=== PATIENT | female | born 1955 | race Caucasian/White ===

== ENCOUNTER → 2016-10-14 | Outpatient (CLI) | payer BC, OTHER ==
[~2016-10-14] MED LIST: ACYC1CAP8 PO; ACYC5OIN3 EXT; BACL10TA PO; CALC600T13 PO; CLON0.5T3 PO; ESTR0.1D TOP; FLUT0.15; FLUV100T12 PO; LAMO200T38 PO; NMN5 PO; PROM25TA9 PO; RISP0.258 PO; TOPI25TA99 PO; ZNF4 PO
--- NOTE | 2016-10-15 06:25 | PAP/PSG TECHNICIAN REPORT ---
[facility] [employer] Polysomnogram Report Study name: None Report date: 10/15/2016 Study date: 10/14/2016 Referring Physician: Rui PETER M.D. Name: LONNIE BOWENS Interpreting Physician: Iman Peter M.D. Date of : 1955 [employer]: Rajendra Tsai RPSGT. Sex: Female Age: 61 StudyType: PSG Weight: 164 lbs 14.25 INCHES Height: 61 years, Height 5' 6" Neck Circum: BMI: 26.47 Medications: PHENERGAN 25 MG, NAPROXEN SODIUM 550 MG, BACLOFEN 20 MG, NAMENDA XR 7 MG, TOPIRAMATE 25 MG, SUMATRIPTAN SUCCINATE 100 MG, ZOVIRAX 200 MG, FLONASE, LEVOXYL 25 MCG, IMITREX 20 MG, RISPERDAL 0.25 MG, FLUVOXAMINE MALEATE 100 MG, LAMICTAL 200 MG, CALCIUM 1500 MG, VIVELLE 0.1 MG Patient History PATIENT HAS HISTORY OF SNORING, FATIGUE, NOCTURIA, EXCESSIVE DAYTIME SLEEPINESS AND NON-REFRESHING SLEEP. SHE IS HERE TODAY FOR AN EVALUATION FOR ERAN. ESS = 14 RM 7 Parameters Monitored NPSG: E1-M2, E2-M1, Fp1-M2, Fp2-M1, F3-M2, F4-M2, F4-M1, C3-M2, C4-M2, C4-M1, O1-M2, O2-M2, O2-M1, T3-M2, T4-M1, P3-M2, P4-M1, CHIN1, CHIN2, HR, EKG, Legs, PFLOW, SNOR, FLOW, CFLOW, Tidal Volume, THOR, ABDO, SpO2, PLTH, CPRESS, ETCO2 Wave, ETCO2, pH Sleep Architecture Sleep Stages Time at Lights Off 10:32:40 PM STAGES Time (min.) TST (%) Time at Lights On 5:56:10 AM Wake 78.5 -- Total Recording Time (TRT) 444.00 min. N1 22.0 6 Total Sleep Period (TSP) 426.0 min. N2 259.0 71 Total Sleep Time (TST) 365.0min. N3 40.0 11 Awake Time 78.5 min. REM 44.0 12 Wake after Sleep Onset 61.0 min. Sleep Efficiency (SE) 82 % Sleep Onset Latency (TRI) 17.5 min. Number of Stage 1 Shifts None Awakenings 18 Stage Changes 73 Number of REM periods 5 REM 44.0 12 REM Latency 142.0 min. NREM 321.0 88 Body Position Analysis Supine Right Left Side Prone Vertical Total Sleep Time (min.) 181.1 121.9 113.0 234.92 0.0 0.0 Total Sleep Time (%) 36% 33% 31% 64 0% N/A% Total Sleep Time REM (min.) 0.0 30.5 13.5 None 0.0 0.0 Total Sleep Time NREM (min.) 130.1 91.4 99.5 None 0.0 0.0 Intermittent Wake (min.) 51.0 10.3 17.2 None 0.0 0.0 Total Sleep Period (%) 38% None None None None None Arousals Myoclonus (PLM) * Events Count Index Events Count Index Spontaneous 26 4 Events Awake (PLMW) 28 21.4 Respiratory 8 1.3 Events Asleep w/ Arousal (PLMA) 11 1.8 PLM 11 2 Events Asleep w/o Arousal (PLMS) 95 15.6 Snoring 9 1 Total Asleep 106 17.4 Total 54 9 Total 134 18 Respiratory Analysis * CA OA MA CH H RERA Total Count 0 0 0 0 59 0 59 Index 0.0 0.0 0.0 0 9.7 0 9.7 Mean Duration 0.0 0.0 0.0 0.00 20.1 0.0 20.1 Longest Duration 0.0 0.0 0.0 0.00 0.0 0.0 40.0 Respiratory Event Summary Total Supine ~Supine Right Left Prone REM NREM Apneas Count 0 0 0 0 0 N/A 0 0 Index 0.0 0 0 0.0 0.0 N/A 0 0 Hypopneas (4% Desat) Count 59 32 27 11 16 N/A 13 46 Index 9.7 14.8 7 5.4 8.5 N/A 17.7 8.6 Apneas & All Hypopneas Count 59 32 27 11 16 N/A 13 46 Index 9.7 15 7 5 8 N/A 17.7 8.6 Respiratory Events ([employer]+All Hyp+RERA) Count 59 32 27 11 16 N/A 13 46 Index 9.7 15 7 5.4 8.5 N/A 17.7 8.6 Respiratory Related Arousal Count 8 32 2 1 1 N/A 0 8 Index 1.3 3 1 0 1 N/A 0 1 Snoring Analysis Supine Right Left Prone REM NREM Total Snore duration 37.4 min Snores count 671 897 337 N/A 257 1,648 1,905 Snore mean duration 1.2 Sec Snores index 309 441 179 N/A 350.5 308.0 313.2 TST with snoring (%) 10.2% Desaturation Event Summary: Minimum %SpO2 Event Count Mean/Min/Max Duration(sec.) Desaturation Index % Time In Bed > 90 56 27.7 / 8.0 / 59.0 14.6 53.3 86 - 90 38 24.2 / 11.3 / 44.0 11.5 46.0 81 - 85 1 11.3 / 11.3 / 11.3 17.6 0.8 76 - 80 0 N/A 0.0 0.0 71 - 75 0 N/A 0.0 0.0 66 - 70 0 N/A 0.0 0.0 61 - 65 0 N/A 0.0 0.0 56 - 60 0 N/A 0.0 0.0 51 - 55 0 N/A 0.0 0.0 < 50 0 N/A 0.0 0.0 Total REM NREM Awake <50% 0.0 min. 0.0 min. 0.0 min. 0.0 min. 51 - 60% 0.0 min. 0.0 min. 0.0 min. 0.0 min. 61 - 70% 0.0 min. 0.0 min. 0.0 min. 0.0 min. 71 - 80% 0.0 min. 0.0 min. 0.0 min. 0.0 min. 81 - 90% 201.9 min. 26.5 min. 163.9 min. 11.5 min. 91 - 100% 230.0 min. 17.5 min. 157.1 min. 55.4 min. Average 91 90 90 92 Minimum SpO2 82 82 83 83 Desaturation Event Index 9.1 17.7 8.8 5.4 # Desat. Events below 89% 60 12 44 4 Time(%) with Saturation below 89% 6.8 2.1 4.4 0.3 Time(min.) with Saturation below 89% 29.5 9.1 18.9 1.4 Time (mins) REM (mins) NREM (mins) % of TST SpO2 Below 90% 60 13 N47 22.4 SpO2 Below 88% 26 0 0 3 Heart Rate Analysis Min (bpm) Max (bpm) Average (bpm) Awake 61 95 70 NREM 58 78 66 REM 64 83 70 Overall 58 83 66 Supplemental O2 Values Minimum O2 level: None Value Start Time End Time [employer] Comments Mrs. Bowens slept in the right, left and supine positions. No cardiac arrhythmia noted. Leg movements noted. No bruxism noted. Snoring was noted and scored as a 4 on a scale of 1 through 5. (0=no snoring, 5=snoring loud enough to be heard through a closed door or down the [address] way) Mrs. Bowens awoke to use the restroom 2 times during the night. Mrs. Bowens stated I slept as well as I do when I am in my own bed. The final report will be interpreted and signed by a sleep physician. The completed physician report will then be placed in the patient medical record. Therapy (cm H2O) 0 TIB (min.) 443.5 TST (min.) 365.0 Sleep Onset (min.) 17.5 REM Onset From Sleep (min.) 142.0 Sleep Efficiency % 82 Wakefulness (%) 18 Wakefulness (min.) 78.5 NREM 1 (%) 6 NREM 1 (min.) 22.0 NREM 2 (%) 71 NREM 2 (min.) 259.0 NREM 3 (%) 11 NREM 3 (min.) 40.0 REM (%) 12 REM (min.) 44.0 # Arousals 54 Arousal Index 9 # Snore 1,905 Snore Index 313.2 AHI 9.7 AHI Supine 15 AHI Non-Supine 7 NREM AHI 8.6 REM AHI 17.7 RDI 9.7 # Obstructive Apnea 0 # Central Apnea 0 # Mixed Apnea 0 # Hypopneas 59 RERAs 0 Total Respiratory Events 61 Time Below SpO2 89% (min.) 28.0 Mean NREM SpO2 (%) 90 Mean REM SpO2 (%) 90 Mean Sleep SpO2 (%) 90 Min NREM SpO2 (%) 83 Min REM SpO2 (%) 82 Position Supine (min.) 181.1 Position Non-supine (min.) 234.9 LM Index Sleep 17.4 LM Index NREM 16.6 LM Index REM 23.2 Mean Heart Rate (bpm) 66 Min Heart Rate (bpm) 58
--- NOTE | 2016-10-22 10:30 | POLYSOMNOGRAPH REPORT ---
REFERRING PERSON: Dr. Iman Peter. [employer]PUT[employer] ENGINEER: Rajendra Tsai. Ms. Bowens is a 61-year-old female complaining of snoring, fatigue, nocturia and excessive daytime sleepiness. She is sent to the sleep lab to rule out sleep disordered breathing. Her [place] Sleepiness Scale score on the evening of this study is 14. BMI is 26.47. Following the technical and digital specifications of the [place] [employer] (AASM) a standard diagnostic polysomnogram was performed monitoring EEG, EOG, EMG (chin and leg deviations), oxygen saturation, body position, digital video, respiratory effort and airflow. The sleep Stage and event scoring was based on the AASM Manual for the Scoring of Sleep and Associated Events 2007 edition. Apneas are defined as a drop in the peak thermal sensor excursion by >90% of baseline for at least 10 seconds. Hypopneas were scored using the 4% oxygen desaturation rule (4A-Medicare) and a decrease in the nasal pressure excursions by >30% of baseline for at least 10 seconds. Respiratory effort-related arousal (RERA's) is defined as a sequence of breaths lasting at least 10 seconds characterized by increasing respiratory effort or flattening of the nasal pressure waveform leading to an arousal from sleep when the sequence of breaths does not meet criteria for an apnea or hypopnea. Apnea Hypopnea index (AHI) is defined as the number of apneas and hypopneas occurring in an hour of sleep. Respiratory disturbance index (RDI) is defined as the number of apneas, hypopneas, and RERA's occurring in an hour of sleep. Ms. Bowens's total sleep period time was 426 minutes. Total sleep time was 365 minutes. Sleep efficiency was 82%. Latency to sleep onset was 17.5 minutes. Wake after sleep onset was 61 minutes. Total non-REM sleep time was 321 minutes. She spent 6% of that time in N1 sleep, 71% in N2 sleep and 11% in N3 sleep. REM latency was 142 minutes. Total REM sleep time was 44 minutes or 12% of total sleep time. There were 54 cortical arousals from sleep. Twenty-six of these arousals were spontaneous, 8 were due to respiratory events, 11 due to periodic limb movements of sleep and 9 were due to snoring. There were 106 periodic limb movements noted on this test. Limb movement index was 17.4. Limb movement with arousal index was 1.8. There were no central obstructive or mixed apneas on this test. However, there were 59 hypopnea. Apnea-hypopnea index was elevated at 9.7. The supine AHI was 15, REM AHI was 17.7. 1,905 snoring events were recorded. Total sleep time with snoring was 10.2%. Mean saturation was 91%, desaturations were noted to 82%. Saturations were less than 89% for 29.5 minutes of recorded time. There was no cardiac ectopy noted on this study. Ms. Bowens's heart rate ranged from a low of 58 beats per minute to a high of 83 beats per minute during sleep. IMPRESSION AND PLAN: A 61-year-old female with evidence of mild sleep apnea, more moderate in supine and REM sleep with significant nocturnal hypoxemia. 1. This patient would likely benefit from positive airway pressure therapy. She should return to sleep lab for a full night titration and then based on those results be started on equipment at home. A download from her machine can be reviewed in 1 month both to check compliance as well as AHI and further pressure adjustments can occur at that time. 2. Alternatively, this patient could be started on auto titrating CPAP with pressures of 5-15 cm. A download from her machine can be reviewed in 1 month and she could be set to optimal pressure at that time. An NPO on on optimal pressure can ensure her hypoxemia resolves with CPAP alone. 3. Should this patient be unwilling or unable to tolerate CPAP therapy, she should be referred to ear, nose and throat or oral surgery/dental medicine to discuss alternative treatments for sleep disorder breathing.
== END | disposition home or self-care (01) ==
LOC: C.NEUR 21:00
PROVIDERS: ATTEND Family Medicine
DX: G47.10 Hypersomnia, unspecified (principal); R06.83 Snoring; R09.02 Hypoxemia; G47.30 Sleep apnea, unspecified

== ENCOUNTER 2017-05-13 15:53 | Emergency (ER) | payer OTHER ==
[~2017-05-13] VITALS: Ht 167.6 cm; Wt 84.7 kg
[~2017-05-13 15:53] MED LIST changes: +ACYC-57 PO; -ACYC1CAP8 PO; +LAMO200T35 PO; -LAMO200T38 PO
[2017-05-13 15:57] VITALS: TEMP 36.7; Ht 167.6 cm; Wt 84.7 kg
[2017-05-13 16:42] VITALS: O2SAT 96
--- NOTE | 2017-05-13 17:09 | DIAGNOSTIC IMAGING REPORT ---
SINGLE VIEW CHEST CLINICAL HISTORY: Generalized weakness. Change in mental status. FINDINGS: An AP, portable, upright chest radiograph is compared to study dated 09/07/2015. The examination is degraded by portable technique and patient rotation. The heart appears enlarged. The pulmonary vasculature is noncongested. Linear opacities at both lung bases are typical for in appearance for atelectasis. No large pleural effusion or pneumothorax is seen. The skeletal structures are osteopenic. The bony thorax is grossly intact. IMPRESSION: 1. Cardiomegaly without radiographic evidence of congestive failure. 2. Linear opacities at the lung bases are typical appearance for atelectasis. Clinical correlation will be required. Electronically signed by: Kody Davis M.D. 05/13/2017 5:08 PM Dictated Date/Time: 05/13/2017 5:07 PM
[2017-05-13] MEDS ORDERED: ACYC5CRE4 TOP (17:18)
[2017-05-13] MEDS ORDERED: ZVRO TOP (17:18)
[2017-05-13] MEDS ORDERED: BACL20TA PO (17:24)
[2017-05-13] MEDS ORDERED: CALC600T36 PO (17:26)
[2017-05-13 17:30] LABS: BASO % 0.4 %; BASO ABS # 0.03 K/uL (0-0.2); EOS % 0.9 %; EOS ABS # 0.06 K/uL (0-0.5); HEMATOCRIT 42.2 % (37-47); IG# 0.04 K/uL (0.00-0.02); LYMPH % 13.5 %; LYMPH ABS # 0.92 K/uL (1.2-3.4); MEAN CELL VOLUME 91.1 fL (80-100); MEAN CORPUSCULAR HEMOGLOBIN 30.2 pg (25-34); MEAN CORPUSCULAR HGB CONC 33.2 g/dl (32-36); MEAN PLATELET VOLUME 9.4 fL (7.4-10.4); MONO % 6.9 %; MONO ABS # 0.47 K/uL (0.11-0.59); NEUT % 77.7 %; PLATELET COUNT 224 K/uL (130-400); RED CELL DISTRIBUTION WIDTH CV 13.4 % (11.5-14.5); RED CELL DISTRIBUTION WIDTH SD 44.3 fL (36.4-46.3); WHITE BLOOD COUNT 6.82 K/uL (4.8-10.8)
[2017-05-13 17:51] LABS: PTT PATIENT 26.8 SECONDS (21.0-31.0)
--- NOTE | 2017-05-13 17:52 | DIAGNOSTIC IMAGING REPORT ---
HEAD WITHOUT CONTRAST (CT) CLINICAL HISTORY: 61 years-old Female with EVALUATE ALTERED MENTAL STATUS/WEAKNESS. Acute weakness with altered mental status TECHNIQUE: Multiple axial CT images of the head were obtained without contrast. A dose lowering technique was utilized adhering to the principles of ALARA. CT DOSE: 537.48 mGy.cm COMPARISON: None. FINDINGS: No acute intracranial hemorrhage, midline shift, intracranial mass, hydrocephalus, territorial ischemia or abnormal extra-axial collection. Thick calcifications of the anterior falx cerebri noted. Minimal bifrontal cerebral atrophy. The calvarium is intact. The mastoid air cells, and middle ear cavities are clear. Large area of partially imaged polypoid mucosal thickening of the left maxillary sinus measures up to 2.7 cm. Mild rightward bowing and spurring of the nasal septum with large left omega bullosa. Soft tissues and orbits are unremarkable. IMPRESSION: No acute intracranial abnormality. The above report was generated using voice recognition software. It may contain grammatical, syntax or spelling errors. Electronically signed by: Oliver Su M.D. 05/13/2017 5:50 PM Dictated Date/Time: 05/13/2017 5:47 PM
[2017-05-13 17:55] LABS: ALT/SGPT 29 U/L (12-78); BLOOD UREA NITROGEN 17 mg/dl (7-18); CARBON DIOXIDE 28 mmol/L (21-32); CREATININE 0.79 mg/dl (0.60-1.20); GLUCOSE 96 mg/dl (70-99); LIPASE 206 U/L (73-393); POTASSIUM 3.5 mmol/L (3.5-5.1); SODIUM 140 mmol/L (136-145)
[2017-05-13] MEDS ORDERED: NAPR-1168 PO (17:55)
[2017-05-13] MEDS ORDERED: MINO5SOL6 TOP (17:55)
[2017-05-13] MEDS ORDERED: [UNRECOGNIZED DRUG - CODE] INJ (17:55)
[2017-05-13] MEDS ORDERED: SUMA20SP8 INH (17:55)
[2017-05-13] MEDS ORDERED: BTLAI INJ (17:55)
[2017-05-13] MEDS ORDERED: BUPIVACAINE (17:55)
[2017-05-13] MEDS ORDERED: LEVO25TA5 PO (17:55)
[2017-05-13] MEDS ORDERED: SUMA100T16 PO (17:55)
[2017-05-13 18:04] LABS: ALKALINE PHOSPHATASE 73 U/L (45-117); AST/SGOT 9 U/L (15-37); CKMB 1.6 ng/ml (0.5-3.6); TOTAL PROTEIN 7.4 gm/dl (6.4-8.2)
--- NOTE | 2017-05-13 18:15 | EMERGENCY ROOM VISIT NOTE ---
History Report prepared by Gregor: Janneth Rodney Under the Supervision of: Ravinder TuckerO. First contact with patient: 16:04 Chief Complaint: NEURO SYMPTOMS Stated Complaint: COULDN'T SWALLOW FOOD, VOMITING, THINKS HAD STROKE History of Present Illness The patient is a 61 year old female who presents to the Emergency Room with complaints of episodic global stroke-like symptoms at 1300 today. She states that she was eating hibachi scallops, rice, and vegetables when she suddenly felt like she could not swallow. She notes the food become stuck in the lower part of her throat. She notes she tried to drink water, though she could not swallow the water. She states that she felt like she could not breathe well. She notes that she vomited everything up. She notes the sensation came back, so she stopped eating. She reports feeling exhausted. She could not drive home afterwards. She states that she felt strange while walking. She reports her informed her that she was slurring her words at about 1500. She is concerned that she may have had a stroke. She has not tried to eat or drink anything since. She is currently able to swallow her saliva. She sucked on a breath mint on the way to the ED. She states that she did not sleep well last night and she feels more tired than normal. Source of History: patient Onset: 1300 today Position: other (global) Quality: other (stroke-like symptoms) Timing: other (episodic ) Associated Symptoms: + SOB, + vomiting Note: She notes difficulty swallowing, slurred speech, and exhaustion. Review of Systems See HPI for pertinent positives & negatives. A total of 10 systems reviewed and were otherwise negative. Past Medical & Surgical Medical Problems: (1) Anxiety State Nos (2) Chest pain (3) Cyst of left breast (4) Depression (5) Migraine (6) Overactive bladder (7) Precordial chest pain (8) Vertigo Surgical Problems: (1) History of hysterectomy Family History FH: heart disease Social History Smoking Status: Never Smoker Smokeless Tobacco Use: No Alcohol Use: none Drug Use: none Marital Status: Housing Status: lives with significant other Occupation Status: employed, other Current/Historical Medications Scheduled Baclofen (Lioresal), 20 MG PO HS Botulinum Toxin Type A (Botox), INJ UD Calcium W/ Vitamin D (Calcium), 1 TAB PO BID Clonazepam (Klonopin), 1 MG PO DAILY Estradiol (Vivelle-Dot), 1 PATCH TOP 2XWK Fluticasone Propionate (Nasal) (Flonase Allergy Relief), 2 SPRAYS NA HS Fluvoxamine Maleate (Luvox), 200 MG PO HS Lamotrigine (Lamictal), 200 MG PO DAILY Levothyroxine Sodium (Levothyroxine Sodium), 25 MCG PO DAILY Memantine (Namenda), 5 MG PO BID Minoxidil (Topical) (Rogaine Extra Strength Fo), 1 APPLN TOP UD Risperidone (Risperdal), 0.25 MG PO DIRECTED Topiramate (Topamax ), 25 MG PO HS Triamcinolone Acetonide (Triamcinolone Acetonide), Unknown Dose INJ UD [Bupivacaine 5% Dea], UD Scheduled PRN Acyclovir (Zovirax), 200 MG PO 5 TIMES DAILY PRN for PRN Acyclovir (Zovirax), 1 APPL TOP 6XD PRN for PRN Naproxen Ds (Naprosyn Ds), 550 MG PO UD PRN for Headache Promethazine Hcl (Phenergan), 25 MG PO Q4-6HOURS PRN for Nausea Sumatriptan (Imitrex), 20 MG INH UD PRN for Headache Sumatriptan Succinate (Imitrex), 50-100 MG PO UD PRN for Migraine Allergies Coded Allergies: No Known Allergies (Unverified , 05/13/17) Physical Exam Vital Signs Date Time Temp Pulse Resp B/P (MAP) Pulse Ox O2 Delivery O2 Flow Rate FiO2 05/13/17 16:56 74 26 143/83 98 Room Air 05/13/17 16:48 69 05/13/17 16:42 96 Room Air 05/13/17 15:57 36.7 90 16 146/81 96 Room Air Physical Exam VITAL SIGNS: were reviewed as above. GENERAL:Non-toxic in appearance. SKIN: Warm dry and pink. HEAD: Normocephalic and atraumatic. OROPHARYNX: Is clear and moist NECK: Supple without lymphadenopathy or meningismus. LUNGS: clear. HEART: Regular rate and rhythm. ABDOMEN: Soft and nontender. EXTREMITIES: Warm and well perfused. NEUROLOGICALLY: Awake alert and oriented without focal deficit. Cranial nerves 2 -12 are intact. There is no pronator drift. Cerebellar testing is within normal limits. There is no nystagmus. There is no facial droop. Speech is clear. Vision is grossly normal. MUSCULOSKELETAL: Good muscle tone. No evidence of trauma. Medical Decision & Procedures ER Provider Diagnostic Interpretation: Radiology results as stated below per my review and radiologist interpretation: SINGLE VIEW CHEST CLINICAL HISTORY: Generalized weakness. Change in mental status. FINDINGS: An AP, portable, upright chest radiograph is compared to study dated 09/07/2015. The examination is degraded by portable technique and patient rotation. The heart appears enlarged. The pulmonary vasculature is noncongested. Linear opacities at both lung bases are typical for in appearance for atelectasis. No large pleural effusion or pneumothorax is seen. The skeletal structures are osteopenic. The bony thorax is grossly intact. IMPRESSION: 1. Cardiomegaly without radiographic evidence of congestive failure. 2. Linear opacities at the lung bases are typical appearance for atelectasis. Clinical correlation will be required. Electronically signed by: Kody Davis M.D. 05/13/2017 5:08 PM Dictated Date/Time: 05/13/2017 5:07 PM HEAD WITHOUT CONTRAST (CT) CLINICAL HISTORY: 61 years-old Female with EVALUATE ALTERED MENTAL STATUS/WEAKNESS. Acute weakness with altered mental status TECHNIQUE: Multiple axial CT images of the head were obtained without contrast. A dose lowering technique was utilized adhering to the principles of ALARA. CT DOSE: 537.48 mGy.cm COMPARISON: None. FINDINGS: No acute intracranial hemorrhage, midline shift, intracranial mass, hydrocephalus, territorial ischemia or abnormal extra-axial collection. Thick calcifications of the anterior falx cerebri noted. Minimal bifrontal cerebral atrophy. The calvarium is intact. The mastoid air cells, and middle ear cavities are clear. Large area of partially imaged polypoid mucosal thickening of the left maxillary sinus measures up to 2.7 cm. Mild rightward bowing and spurring of the nasal septum with large left omega bullosa. Soft tissues and orbits are unremarkable. IMPRESSION: No acute intracranial abnormality. The above report was generated using voice recognition software. It may contain grammatical, syntax or spelling errors. Electronically signed by: Oliver Su M.D. 05/13/2017 5:50 PM Dictated Date/Time: 05/13/2017 5:47 PM Laboratory Results 05/13/17 17:08 Red Blood Count 4.63, Mean Corpuscular Volume 91.1, Mean Corpuscular Hemoglobin 30.2, Mean Corpuscular Hemoglobin Concent 33.2, Mean Platelet Volume 9.4, Neutrophils (%) (Auto) 77.7, Lymphocytes (%) (Auto) 13.5, Monocytes (%) (Auto) 6.9, Eosinophils (%) (Auto) 0.9, Basophils (%) (Auto) 0.4, Neutrophils # (Auto) 5.30, Lymphocytes # (Auto) 0.92, Monocytes # (Auto) 0.47, Eosinophils # (Auto) 0.06, Basophils # (Auto) 0.03 05/13/17 17:08 Test 05/13/17 17:08 White Blood Count 6.82 K/uL (4.8-10.8) Red Blood Count 4.63 M/uL (4.2-5.4) Hemoglobin 14.0 g/dL (12.0-16.0) Hematocrit 42.2 % (37-47) Mean Corpuscular Volume 91.1 fL (80-100) Mean Corpuscular Hemoglobin 30.2 pg (25-34) Mean Corpuscular Hemoglobin Concent 33.2 g/dl (32-36) Platelet Count 224 K/uL (130-400) Mean Platelet Volume 9.4 fL (7.4-10.4) Neutrophils (%) (Auto) 77.7 % Lymphocytes (%) (Auto) 13.5 % Monocytes (%) (Auto) 6.9 % Eosinophils (%) (Auto) 0.9 % Basophils (%) (Auto) 0.4 % Neutrophils # (Auto) 5.30 K/uL (1.4-6.5) Lymphocytes # (Auto) 0.92 K/uL (1.2-3.4) Monocytes # (Auto) 0.47 K/uL (0.11-0.59) Eosinophils # (Auto) 0.06 K/uL (0-0.5) Basophils # (Auto) 0.03 K/uL (0-0.2) RDW Standard Deviation 44.3 fL (36.4-46.3) RDW Coefficient of Variation 13.4 % (11.5-14.5) Immature Granulocyte % (Auto) 0.6 % Immature Granulocyte # (Auto) 0.04 K/uL (0.00-0.02) Prothrombin Time 10.2 SECONDS (9.0-12.0) Prothromb Time International Ratio 1.0 (0.9-1.1) Activated Partial Thromboplast Time 26.8 SECONDS (21.0-31.0) Partial Thromboplastin Ratio 1.0 Anion Gap 5.0 mmol/L (3-11) Est Creatinine Clear Calc Drug Dose 80.9 ml/min Estimated GFR () 93.0 Estimated GFR (Non- 80.2 BUN/Creatinine Ratio 21.6 (10-20) Calcium Level 9.0 mg/dl (8.5-10.1) Magnesium Level 2.2 mg/dl (1.8-2.4) Total Bilirubin 0.3 mg/dl (0.2-1) Direct Bilirubin < 0.1 mg/dl (0-0.2) Aspartate Amino Transf (AST/SGOT) 9 U/L (15-37) Alanine Aminotransferase (ALT/SGPT) 29 U/L (12-78) Alkaline Phosphatase 73 U/L (45-117) Total Creatine Kinase 62 U/L (26-192) Creatine Kinase MB 1.6 ng/ml (0.5-3.6) Creatine Kinase MB Ratio 2.6 (0-3.0) Troponin I < 0.015 ng/ml (0-0.045) Total Protein 7.4 gm/dl (6.4-8.2) Albumin 4.0 gm/dl (3.4-5.0) Lipase 206 U/L (73-393) Thyroid Stimulating Hormone (TSH) 1.070 uIu/ml (0.300-4.500) Laboratory results as stated above per my review. ECG Per My Interpretation Indication: other (stroke-like symptoms) Rate (beats per minute): 62 Rhythm: normal sinus Findings: no acute ischemic change, no ectopy ED Course 1606: Previous medical records were reviewed. The patient was evaluated in room C11A. A complete history and physical examination was performed. 1820: I reassessed the patient at this time. She is feeling better and resting comfortably. I discussed the results and treatment plan with the patient. I answered all pertaining questions that she had. She expressed understanding and verbalized agreement. The patient will be discharged home. Medical Decision Differentials include: Acute coronary syndrome, myocardial infarction, CVA, TIA , anemia, infection, pneumonia, UTI, pyelonephritis, poor nutrition, dehydration , electrolyte disturbance, hypoglycemia, and esophageal obstruction. This is a 61-year-old female who presents to the ED with an episode of esophageal obstruction. The patient was eating around 1 PM when she developed a sensation that the food she was eating became stuck in her esophagus. The patient states that she attempted to drink some water but this caused her to feel like she was choking. She eventually vomited and was able to bring up the food. The patient states that she felt exhausted after this and her friend said that she seemed to loopy. She states that it felt a little strange to walk and she did not feel comfortable driving home. When she arrived home, around 3 PM, she talked with someone on the phone who reported that her words sounded somewhat slurred. She now feels tired but otherwise no complaints. Her neurologic and physical exam are completely normal. Her blood pressure was slightly elevated. An EKG shows a normal sinus rhythm at a rate of 62. CT scan of the brain and a chest x-ray were negative for acute disease. CBC and complete metabolic panel were normal and a troponin was negative. TSH is normal. The patient was able to tolerate oral fluids. She was told the results. She is felt to be stable for discharge and outpatient follow-up. I did recommend follow-up GI referral by the PCP. Medication Reconcilliation Current Medication List: was personally reviewed by me Blood Pressure Screening Patient's blood pressure: Elevated blood pressure Blood pressure disposition: Elevated BP felt to be situational Impression Primary Impression: Esophageal obstruction due to food impaction Additional Impression: Fatigue Scribe Attestation The scribe's documentation has been prepared under my direction and personally reviewed by me in its entirety. I confirm that the note above accurately reflects all work, treatment, procedures, and medical decision making performed by me. Departure Information Dispostion Home / Self-Care Referrals No Doctor, Assigned (PCP) Forms HOME CARE DOCUMENTATION FORM, IMPORTANT VISIT INFORMATION, WORK / SCHOOL INSTRUCTIONS Patient Instructions ED Foreign Body Esophageal Rslv, My [facility] Additional Instructions Follow-up with your PCP for GI referral. Return for any concerns or new symptoms. Problem Qualifiers
[2017-05-13 18:44] VITALS: BP 135/67; PULSE 65; O2SAT 96
== END 2017-05-13 18:44 | disposition home or self-care (01) ==
LOC: C.EDB 15:55 → C.EDC 18:44
DX: K22.2 Esophageal obstruction (principal); R09.89 Other specified symptoms and signs involving the circulatory and respiratory systems; R53.83 Other fatigue; F41.9 Anxiety disorder, unspecified; F32.9 Major depressive disorder, single episode, unspecified; G43.909 Migraine, unspecified, not intractable, without status migrainosus; Z82.49 Family history of ischemic heart disease and other diseases of the circulatory system; Z79.899 Other long term (current) drug therapy